=== PATIENT | female | born 2005 | race Caucasian/White ===

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

== ENCOUNTER 2024-02-20 16:30 | Emergency (ER) | payer OTHER, SELFPAY ==
--- NOTE | ~2024-02-20 | US_ITS ---
EXAMINATION: US PELVIS CLINICAL INFORMATION: Vaginal bleeding for 15 days COMPARISON: None available. TECHNIQUE: Ultrasound of the pelvis is performed using both transabdominal and transvaginal transducers along with Doppler. Transvaginal imaging is performed due to inadequate visualization transabdominally. FINDINGS: The uterus measures 7.8 cm in length and 3.6 x 4.2 cm in AP and transverse dimensions. Endometrial stripe measures 1.0 cm in thickness. The right ovary measures 3.4 x 2.9 x 2.2 cm (volume 11.4 mL), and the left ovary measures 4.2 x 2.7 x 2.3 cm (volume 13.7 mL). There are multiple follicles in both ovaries located mainly along the periphery, which have a somewhat polycystic ovarian morphology. No free fluid is seen. US/US pelvic and transvaginal IMPRESSION: Somewhat polycystic ovarian morphology; clinical correlation recommended. Otherwise, no acute findings identified.
[2024-02-20 17:01] VITALS: BP 137/84; PULSE 74; RESP 18; TEMP 37; O2SAT 100; BMI 47.2
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
[2024-02-20 17:24] LABS: Basophils Percent Auto 0.2 % (0-2); Eosinophils Absolute Auto 0.1 X10*3/uL (0.0-0.4); Eosinophils Percent Auto 0.6 % (0-4); Hematocrit 41.9 % (37.0-47.0); Hemoglobin 14.1 g/dl (12.0-16.0); Imm Gran Abs Auto 0.01 X10*3/uL (0.00-0.03); Imm Gran Pct Auto 0.1 % (0.0-0.4); Lymphocytes Absolute Auto 2.4 X10*3/uL (1.2-4.9); Lymphocytes Percent Auto 27.8 % (20-40); MANUAL DIFF FLAG NO; Mean Corpuscular HGB Conc 33.7 g/dl (31.0-35.0); Mean Corpuscular Hemoglobin 26.3 pg (27.0-33.0); Mean Corpuscular Volume 78.2 fL (80.0-98.0); Mean Platelet Volume 10.7 fL (9.4-12.3); Monocytes Absolute Auto 0.6 X10*3/uL (0.1-1.2); Monocytes Percent Auto 6.9 % (2-11); Neutrophils Absolute Auto 5.6 x10*3/uL (2.0-8.3); Neutrophils Percent Auto 64.4 % (45-73); Platelet Count 264 X10*3/uL (160-400); Red Blood Count 5.36 X10*6/uL (4.20-5.50); Red Cell Distribution Width 15.9 % (11.0-16.0); White Blood Count 8.7 X10*3/uL (4.8-10.8)
[2024-02-20 17:39] LABS: Alanine Aminotransferase 33 U/L (0-31); Albumin Level 4.4 g/dL (3.5-5.0); Alkaline Phosphatase 94 U/L (39-117); Anion Gap 11 (12-20); Aspartate Amino Transferase 17 U/L (5-31); Bilirubin Total 0.3 mg/dL (0.0-1.0); Blood Urea Nitrogen 10 mg/dL (9-16); Calcium 9.7 mg/dL (8.4-10.2); Carbon Dioxide 23 mmol/L (22-29); Chloride 111 mmol/L (96-108); Creatinine Clr Calc Pharmacy 133.3; Estimated Glomerular Filt Rate > 60; Glucose Random 94 mg/dL (60-115); Potassium 3.8 mmol/L (3.3-5.1); Sodium 141 mmol/L (135-145); Total Protein 7.8 g/dL (6.5-8.0)
[2024-02-20 17:47] LABS: HCG Quantitative < 2 mIU/mL
--- NOTE | 2024-02-20 18:45 | PC.NURSE ---
pt reports that she started bleed about 15 days ago and it has not stopped. She describes the bleeding as having her period but it has not stopped. Care handed of to oncoming RN.
--- NOTE | 2024-02-20 18:52 | PC.NURSE ---
this rn assumed care of pt, pt resting in stretcher, no acute distress noted. ultrasound at bedside.
[2024-02-20 19:36] VITALS: BP 134/84; PULSE 64; RESP 18; TEMP 36.7; O2SAT 100
[2024-02-20] MEDS: Ketorolac Tromethamine 30 MG/ML VIAL IM (22:05)
[2024-02-20 23:13] VITALS: BP 118/73; PULSE 62; RESP 16; TEMP 36.9; O2SAT 98
== END 2024-02-20 23:15 | disposition home or self-care (01) ==
PROVIDERS: Physician Assistant Medical; Emergency Provider Emergency Medicine
DX: N94.6 Dysmenorrhea, unspecified (principal); Z87.59 Personal history of other complications of pregnancy, childbirth and the puerperium
CPT/HCPCS: 36415; 76830; 76856; 80053; 83735; 84702; 85025; 96372; 99283; 99284; J1885

== ENCOUNTER 2025-05-15 13:49 | Emergency (ER) | payer OTHER, SELFPAY ==
--- NOTE | ~2025-05-15 | XR_ITS ---
EXAMINATION: XR FOOT, LEFT CLINICAL INFORMATION: pain COMPARISON: None available. TECHNIQUE: AP, lateral, and oblique views of the left foot. FINDINGS: Subtle cortical irregularity and proximal phalanx of the fourth toe. The metatarsals are intact. The tarsal bones are intact. Calcaneus and tarsal bones are intact. No subcutaneous emphysema. No metallic or radiopaque foreign body. XR/XR foot LT min 3V IMPRESSION: Questionable nondisplaced fracture proximal phalanx, fourth toe Electronically signed by: Lance Knox MD 05/15/2025 02:49 PM EDT
[2025-05-15 14:23] VITALS: BP 135/57; PULSE 72; RESP 16; TEMP 36.1; O2SAT 100; BMI 43.5
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
[2025-05-15 15:10] VITALS: BP 135/57; PULSE 72; RESP 16; TEMP 36.1; O2SAT 100
--- NOTE | 2025-05-15 15:12 | PC.NURSE ---
Patient prsents to ED c/o pain in last two toes of left foot. Patient states I was playing with my kid when I kicked the door jamb Incident happened yesterday. Lateral portion of foot and last two toes noted to be bruised. +CMS +ROM Pain rated 5/10 at rest but 9/10 during ambulation. Xray of foot confirms 4th toe fracture. VSS and up to date. Plan of care on going
[2025-05-15 15:28] VITALS: BP 135/57; PULSE 72; RESP 16; TEMP 36.1; O2SAT 100
--- OUTSIDE RECORDS SUMMARY | 2025-05-15 17:15 | XMS_ITS | Clinical Summary ---
Author Organization [facility] Address [address] [place] [address] Phone Care Team Providers Care Siebel Solution Architect Name Role Phone IainRanjana diaz ERICA Primary Care Provider [phone] Allergies Active Allergy Reactions Criticality Noted Date Comments Food Shell fish Medications No known medications Active Problems Problem Noted Date Diagnosed Date BMI 40.0-44.9, adult 01/09/2025 Assessment & Plan (01/09/2025 2:23 PM EST): Discussed concerns regarding weight Reviewed nursing home potential health risks associated with obesity Discussed dietary changes, portion sizes, limiting snacks, and encouraged healthier options Also reviewed importance of daily aerobic activity Generalized anxiety disorder 05/09/2016 Overview (05/27/2021): Anxiety (300.02) Onset: 05/09/2016 Added by: Vimal Morales 04/24/2021 - 05/19/2021 Partial Hospitalization program Assessment & Plan (01/03/2024 2:44 PM EST): No meds since becoming She is now 3 m post Doing well overall Has weekly therapy Going to resume care with psychiatrist Assessment & Plan (02/08/2023 9:07 AM EDT): Reportedly Bipolar disorder and on medications. She stopped her medications 2 months ago. I have discussed with her and her boyfriend, it is not mcnamara to stop her medications abruptly. She pinky promises to call her psychiatrist and therapist this week. Assessment & Plan (05/27/2021 9:16 AM EDT): [facility] Hospitalization Program Nithya Lozada MD 04/24/21 ?? Pt d/c'd 05/19/21. 15 days partial Hospitalization and Intensive Outpatient Program. Ds/ma Episode of recurrent major depressive disorder 0 05/08/2016 Overview (05/24/2018): Depression (311) Onset: 05/08/2016 Added by: Vimal Morales Assessment & Plan (08/16/2018 1:27 PM EDT): Recent partial hospitalization. On Effexor. Will be seeing a therapist at [facility] disorder of initiating or maintaining sleep 02/25/2016 Overview (05/24/2018): Insomnia (307.41) Onset: 02/25/2016 Added by: Julienne Scott Resolved Problems Problem Noted Date Diagnosed Date Resolved Date Depo-Provera contraceptive status 01/03/2024 01/09/2025 Assessment & Plan (01/03/2024 2:46 PM EST): Contraception counseling done She is interested in depo No C/I to use Risks discussed STI prevention discussed Should also f/u with OB Less than 8 weeks gestation of 02/08/2023 01/03/2024 Assessment & Plan (02/08/2023 9:07 AM EDT): She is likely 4 weeks . I have given address for [facility]. She is undecided. They will discuss. If difficulty will refer to [facility]. Cough 05/27/2022 01/03/2024 Assessment & Plan (05/27/2022 4:00 PM EDT): Upper respiratory infection, but improving. No signs of bacterial. Suggest symptomatic care. Slow transit constipation 11/27/2016 Overview (05/24/2018): Constipation (564.01) Onset: 11/27/2016 Added by: Cliff Son Encounters Date Type Department Care Team Description 05/15/2025 1:49 PM EDT - 05/15/2025 3:29 PM EDT [facility] - Patient [place] from Last 3 Months Immunizations Immunization Administration Dates Next Due DTaP 5 03/17/2007, 4,2003,05/21,2003 HPV Vaccine 9 Valent 07/30/2016 HPV, Quadrivalent 07/29/2015,02/23/2014 Hep A, ped/adol 08/04/2017,08/12/2010 Hep B, ped/adol 2003,2003,2003 Hib (PRP-T) 05/07/2004, 3,2003,03/14 IPV 03/17/2007, 4,2003,03/14 Influenza, injectable, quadr ivalent, preservative free 01/03/2024,10/19/2022,09/21/2019,08/08,08/04/2017,07/30/2016 Influenza, injectable, trivalent 07/29/2015 Influenza, injectable, triva lent, preservative free 01/09/2025 MMR 03/17/2007,02/26/2004 Meningococcal Conj (Menactra) MCV4P 09/21/2019,0 02/23/2014 Pneumococcal Conjugate 03/14/2005,2003, Tdap 02/23/2014 Varicella 03/17/2007,02/26/2004 Family History Medical History Relation Name Comments No Known Problems Father Kareem No Known Problems Mother Courtney Anxiety disorder Sister Liseth Autism Sister Liseth Depression Sister Liseth Relation Name Status Comments Father Kareem Alive Mother Courtney Alive Other Bam (child) Alive Sister Liseth Alive Social History Tobacco Use Types Packs/Day Years Used Date Smoking Tobacco: Never Smokeless Tobacco: Never Tobacco Cessation:Counseling Given: No Comments:Never Smoker Alcohol Use Standard Drinks/Week Comments No 0 (1 standard drink = 0.6 oz pur e alcohol) Hunger/Food Answer Date Recorded In the last 12 months, did y ou or your family ever eat less than you felt you should because there wasn't enough money for food? Yes 01/09/2025 Stable Housing Answer Date Recorded Are you worried that in the next 2 months you may not have stable housing? No 01/09/2025 Transportation Concerns Answer Date Rec orded In the last 12 months, have you or your family ever had to go without healthcare because you didn't have a way to get there? No 01/09/2025 Hazards in Home Answer Date Recorded Think about the place you li ve. Do you have problems with any of the following? Pests (mice or roaches), mold, no/not working smoke detectors, water leaks, no window guards. No 2024 Financing Utilities Answer Date Recorde d In the last 12 months, has t he electric, gas, oil, or water company threatened to shut off your services in your home? No 01/09/2025 Safety at Home Answer Date Recorded Are you or your family worried about feeling saf e in your home? No 01/09/2025 Outside Support Answer Date Recorded Do you feel that you need mo re support from other people or programs to help you care for yourself or your family? No 01/09/2025 Understanding Health Concerns Answer Da te Recorded Do you need help understandi ng your or your child's healthcare needs (diagnosis, medications, plan, etc.)? No 01/09/2025 Financing Health Concerns Answer Date R ecorded In the last 12 months, was t here a time when your child needed to see a doctor or get medications or supplies but could not because of cost? No 01/09/2025 Missing School or Work Answer Date Octavio rded Did you or your child miss s chool or work because of a health problem that could have been avoided? No 01/09/2025 Child Education Answer Date Recorded Do you have concerns about y our/your child's learning or behavior in school, preschool, or daycare? No 01/09/2025 Comments No Sex and Gender Information Value Date Recorded Sex Assigned at Female 01/03/2024 2:16 PM EST Legal Sex Female 6:36 PM EDT Gender Identity Female 01/03/2024 2:16 PM EST Sexual Orientation Bisexual 01/03/2024 2: 16 PM EST Last Filed Vital Signs Vital Sign Reading Time Taken Comments Blood Pressure 116/68 01/09/2025 1:48 PM EST Pulse 54 01/09/2025 1:48 PM EST Temperature 36.9 ??C (98.5 ??F) 01/09/2025 1:48 PM ES T Respiratory Rate - - Oxygen Saturation - - Inhaled Oxygen Concentration - - Weight 105 kg (231 lb) 01/09/2025 1:48 PM EST Height 156 cm (5' 1.42 ) 01/09/2025 1:48 PM EST Body Mass Index 43.06 01/09/2025 1:48 PM EST Plan of Treatment Upcoming Encounters Date Type Department Care Team (Late st Contact Info) Description 01/14/2026 1:30 PM EST Office Visit [facility] [address] [place] [address] [place] [address] Ranjana Puir, [employer] [address] [place] [address] [place] [address] Health Maintenance Due Date Last Done Comments HIV Screening 2018 Men B Vaccine (1 of 2 - Standard) 2019 Hepatitis C Screening 2021 DTaP,Tdap,and Td Vaccines (7 - Td or Tdap) 02/24/2024 02/23/2014, 03/17/2007, 05/07/2004, Additional history exists COVID-19 Vaccine (3 - 2023-2 5 season) 2024 08/27/2021, 08/06/2021 Hepatitis B Vaccines Completed 2003, 2003, 2003 HIB Vaccines Completed 05/07/2004, 07/2003, 2003, Additional history exists Pneumococcal Vaccine Completed 03/14/2005, 2003, 2003 IPV Vaccines Completed 03/17/2007, 01/29, 2003, Additional history exists MMR Vaccines Completed 03/17/2007, 02/26/2004 Varicella Vaccines Completed 03/17/2007, 02/26/2004 HPV Vaccines Completed 07/30/2016, 07/01, 02/23/2014 Hepatitis A Vaccines Completed 08/04/2017, 08/12/20 10 Meningococcal Vaccine Completed 09/21/2019, 014 Chlamydia and Gonorrhea Screening Completed 01/09/2025, 01/03/2024, 10/19/2022, Additional history exists Influenza Vaccines Completed 01/09/2025, 0 01/03/2024, 10/19/2022, Additional history exists Procedures * Due to [place] [employer] law, this organization might not be sharing sensitive test results. Procedure Name Priority Date/Time Associated Diagnosis Comments CHLAMYDIA AND GONORRHEA, AMPLIFIED Routine 01/09/2025 2:11 PM EST Routine screening for STI (sexually transmitted infection) from Last 3 Months or Most Recently Relevant to Health Maintenance Results * Due to [place] [employer] law, this organization might not be sharing sensitive test results. * Chlamydia and Gonorrhea, Amplified (01/09/2025 2:11 PM EST) C trach [facility] Negative Negative [facility] N gonorrhoeae [facility] Negative Negative [facility] Swab (Vagina) 01/09/2025 2:1 1 PM EST 01/09/2025 Comment:Vagina Narrative [facility] - 01/10/2025 11:05 PM EST Performed at: ??01 - [facility], [address], [place], [place] [id number] Consumer Safety Inspector: Tristan Felipe MD, Phone: ??[phone] Ranjana Puri NP LAB MICROBIOLOGY - GENERAL ORDER TA Final Result [facility] [address] [place] [address] from Last 3 Months or Most Recently Relevant to Health Maintenance [place] [facility] [place] [facility] [place] [place] [address] [address] [place] [address] [facility] [place] Address: [address] [address] [place] [address] Care Teams Siebel Solution Architect Relationship Specialty Start Date End Date Ranjana Puri NP [address] [facility] [place] [address] PCP - General Pediatrics 03/17/21
== END 2025-05-15 15:29 | disposition home or self-care (01) ==
PROVIDERS: Emergency Provider Emergency Medicine
DX: S92.535A Nondisplaced fracture of distal phalanx of left lesser toe(s), initial encounter for closed fracture (principal); W22.09XA Striking against other stationary object, initial encounter; Y93.89 Activity, other specified; Y92.9 Unspecified place or not applicable; Y99.9 Unspecified external cause status
CPT/HCPCS: 73630; 99283; 99284

== ENCOUNTER → 2025-05-15 14:27 | Outpatient (BNV) | payer OTHER, SELFPAY | PROVIDERS: Visit Provider Radiology Diagnostic Radiology | DX: M79.672 Pain in left foot (principal) | CPT/HCPCS: 73630 ==